=== PATIENT | female | born 1990 | race African-American/Black ===

== ENCOUNTER 2018-02-16 03:20 | Emergency (ER) | payer SELFPAY ==
[~2018-02-16] VITALS: Ht 160 cm; Wt 80.7 kg
[2018-02-16 03:41] VITALS: BP 116/73
--- NOTE | 2018-02-16 03:41 | NUR ---
PT BEDSIDE TRIAGED WITH VSS.
--- NOTE | 2018-02-16 03:41 | NUR ---
PT TAKEN TO BED 2
--- NOTE | 2018-02-16 03:45 | NUR ---
27 YO FEMALE COMING TO ED FOR C/O COUGH. PT STATES SHE HAS GREEN SPUTUM WITH INTERMITTENT COUGH. PT STATES THAT SHE HAS BEEN TAKING TYLENOL, MUCINEX @ HOME. PT HAS PMH OF BRONCHITIS DIAGNOSED LAST YEAR. PT AAOX4 IRRITABLE @ TIMES, REFUSING TO PLACE GOWN ON. 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 LUNG SOUNDS DIMINSHED. S1 S2 HEARD. ABDOMEN SOFT NON DISTENDED. PT CONTINENT. SKIN INTACT. NO OTHER S/S OF ACUTE DISTRESS NOTED. WILL UPDATE ER MD. WILL CONTINUE TO OBSERVE.
--- NOTE | 2018-02-16 04:25 | NUR ---
PT LEFT HOSPITAL WITHOUT RECEIVING DISCHARGE INSTRUCTIONS AND PRESCRIPTIONS.
[2018-02-16 04:44] VITALS: BP 128/80
== END 2018-02-16 04:25 | disposition home or self-care (01) ==
LOC: MED 03:20
DX: J20.9 Acute bronchitis, unspecified (principal)
CPT/HCPCS: 99283